=== PATIENT | female | born 1975 | race Caucasian/White ===

== ENCOUNTER 2017-01-18 14:18 | Emergency (ER) | payer OTHER ==
--- NOTE | ~2017-01-18 | CR72 ---
[facility] A Service of [facility] & [facility] RADIOLOGY TEXT RESULTS PATIENT: RUI FAIR LOCATION: [facility] : [birth year] UNIT #: [id number] AGE: [address]: Danette Espinoza MD SEX: F ORDER DR: [id number] [facility] [address] [place], [place] [address] [id number] E MR#: [id number] Acc #: [id number] NAME: RUI FAIR : 1975 SEX: F STUDY DATE/TIME: 01/18/2017 13:50 UNIT: [facility] ROOM: STUDY DESCRIPTION: CR Chest Single View Portable Attending Physician: Danette Espinoza M.D. Ordering Physician: Ed Jose L Alarcon M.D. Primary Care Physician: Dillon Jensen M.D. MEDICAL IMAGING REPORT This report is preliminary unless electronic signature is present EXAM Chest portable, 01/18/2017 1350 hours CLINICAL HISTORY 41-year-old complaining of pressure in chest anteriorly for 2 days, shortness of air today. COMPARISON 05/08/2016 FINDINGS Portable upright chest demonstrates normal cardiac, mediastinal and hilar contours. There is mild elevation of the right hemidiaphragm, unchanged. The lungs are clear and there are no effusions. IMPRESSION No acute cardiopulmonary findings. No change from 05/08/2016. There is mild elevation of the right hemidiaphragm which is unchanged. Dictated by... Veronica Cooley M.D. THIS IS AN ELECTRONICALLY VERIFIED REPORT Veronica Cooley M.D. at 01/19/2017 9:38 AM TOM/mikey TD: 01/18/2017 22:12 JOB #: [id number] MEDICAL IMAGING REPORT Page 1 of 1 COPY
--- NOTE | ~2017-01-18 | EKG ---
PATIENT: RUI FAIR UNIT #: [id number] Ventricular Rate: 88 BPM Atrial Rate: 88 BPM P-R Interval: 148 ms QRS Duration: 86 ms Q-T Interval: 348 ms QTC Calculation(Bezet): 421 ms P [place]: 34 degrees Calculated R [place]: 18 degrees Calculated T [place]: 15 degrees Diagnosis Line: Normal sinus rhythm Diagnosis Line: Normal ECG Diagnosis Line: When compared with ECG of 08-MAY-2016 07:07, Diagnosis Line: No significant change was found Diagnosis Line: Confirmed by ROLY MAR MD ([id number]) on 01/20/2017 Diagnosis Line: 9:12:12 AM INTERPRETING MD: ISABLEA MCKEON
[2017-01-18 14:04] LABS: BASOPHIL% 0.2 % (0-2.5); EOSINOPHIL# 0.3 X10e3 (0-0.7); HEMATOCRIT 40.4 % (35.0-45.0); HEMOGLOBIN 13.9 gm/dL (12.0-16.0); LYMPHOCYTE# 1.5 X10e3 (1.0-3.5); LYMPHOCYTE% 24.7 % (17.0-45.0); MEAN CELL VOLUME 88.3 FL (83-96); MEAN CORPUSCULAR HEMOGLOBIN 30.3 PG (28-34); MEAN CORPUSCULAR HGB CONC 34.4 g/dL (30-36); MEAN PLATELET VOLUME 8.1 FL (6.5-11.5); MONOCYTE# 0.4 X10e3 (0-1.0); MONOCYTE% 7.6 % (3.0-12.0); NEUTROPHIL# 3.7 X10e3 (1.5-7.1); NEUTROPHIL% 62.5 % (40-75); PLATELET COUNT 245 X10e3 (140-420); RED BLOOD COUNT 4.57 X10e (3.90-5.30); RED CELL DISTRIBUTION WIDTH 13.1 % (11.0-15.5); WHITE BLOOD COUNT 5.9 X10e3 (4.0-10.5)
[2017-01-18 14:08] LABS: POC - CKMB <1.0 ng/mL (0.0-7.9); POC - TROPONIN <0.05 ng/mL (<=0.05)
[2017-01-18 14:09] LABS: DIFF IND NO
[2017-01-18 14:13] LABS: INR 0.9; PARTIAL THROMBOPLASTIN TIME 24.6 SECONDS (23.5-31.3); PROTHROMBIN TIME (PATIENT) 9.5 SECONDS (9.6-11.5)
[2017-01-18 14:17] LABS: ALBUMIN SERUM 3.8 g/dL (3.5-5.0); ALKALINE PHOSPHATASE 87 U/L (32-92); ALT (SGPT) 24 U/L (10-40); AST (SGOT) 21 U/L (10-42); BILIRUBIN, DIRECT 0.1 mg/dL (0.0-0.2); BILIRUBIN,INDIRECT 0.5 mg/dL (0.0-0.9); BILIRUBIN,TOTAL 0.6 mg/dL (0.2-2.0); BLOOD UREA NITROGEN 12 mg/dL (9-23); BUN/CREATININE RATIO 17.14; CALCIUM SERUM 9.7 mg/dL (8.4-10.2); CARBON DIOXIDE 25 mmol/L (22-31); CHLORIDE 106 mmol/L (100-111); CREATININE SERUM 0.7 mg/dL (0.6-1.4); GLOM FILT RATE Estimated ABOVE60 mL/min (>60); GLUCOSE FASTING 106 mg/dL (70-110); POTASSIUM 3.8 mmol/L (3.5-5.1); PROTEIN TOTAL SERUM 7.3 g/dL (6.0-8.3); SODIUM 139 mmol/L (135-145)
[~2017-01-18 14:18] MED LIST: ALBUTEROL17 G1 IH; ALBUTEROL17 GM INH; AMOXIL500 MG PO; ANEXSIA 7.5/3251 TA1 PO; FLEXERIL10 M1 PO; HYDROCODONE-APA1 T57 PO; IBUPROFEN800 MG PO; LORTAB 5/500 TA1 TA2 PO; PREDNISONE50 MG PO; PRENATAL1 TA1 PO; SYNTHROID0.1 MG PO; VICODIN PO; ZITHROMAX PO
[2017-01-18 15:35] LABS: POC - CKMB <1.0 ng/mL (0.0-7.9); POC - TROPONIN <0.05 ng/mL (<=0.05)
[2017-01-18 17:11] LABS: INFLUENZA A NEG (NEG); INFLUENZA B NEG (NEG)
== END 2017-01-18 17:25 | disposition home or self-care (01) ==
LOC: CED 14:18
PROVIDERS: Emergency Medicine
DX: R07.89 Other chest pain (principal); E03.9 Hypothyroidism, unspecified; J45.909 Unspecified asthma, uncomplicated; Z90.49 Acquired absence of other specified parts of digestive tract; Z98.890 Other specified postprocedural states
CPT/HCPCS: 36415; 71010; 80048; 80076; 82553; 84484; 84703; 85025; 85610; 85730; 87804; 93005; 99284

== ENCOUNTER 2017-06-02 15:12 | Emergency (ER) | payer OTHER ==
[~2017-06-02] VITALS: Ht 149.9 cm; Wt 97.5 kg
[2017-06-02 18:45] LABS: URINE SOURCE CLEAN CATCH
[2017-06-02 18:49] LABS: URINE APPEARANCE CLEAR; URINE BILIRUBIN NEG (NEG); URINE BLOOD NEG (NEG); URINE COLOR YELLOW; URINE GLUCOSE NEG (NEG); URINE KETONE NEG (NEG); URINE LEUKOCYTE ESTERASE NEG (NEG); URINE NITRATE NEG (NEG); URINE PH 5.5 (5-8); URINE PROTEIN NEG (NEG); URINE SPECIFIC GRAVITY 1.019 (1.003-1.035); URINE UROBILINOGEN 0.2 MG/DL (NEG)
[2017-06-02 18:58] LABS: CULTURE INDICATED? NO
== END 2017-06-02 19:45 | disposition home or self-care (01) ==
LOC: CED 15:12
PROVIDERS: Emergency Medicine
DX: R51 Headache (principal); H53.9 Unspecified visual disturbance; J45.909 Unspecified asthma, uncomplicated; Z90.49 Acquired absence of other specified parts of digestive tract; Z88.2 Allergy status to sulfonamides
CPT/HCPCS: 81003; 84703; 99284

== ENCOUNTER → 2017-06-14 | Outpatient (CLI) | payer OTHER ==
--- NOTE | ~2017-06-14 | MR189 ---
[facility] A Service of [facility] & [facility] RADIOLOGY TEXT RESULTS PATIENT: RUI FAIR LOCATION: [facility] : 79 UNIT #: [id number] AGE: [address]: Salbador Varghese MD SEX: F ORDER DR: [id number] [facility] [address] [place], [place] [address] [id number] O MR#: [id number] Acc #: [id number] NAME: RUI FAIR : 1975 SEX: F STUDY DATE/TIME: 06/14/2017 8:19 UNIT: [facility] ROOM: STUDY DESCRIPTION: MRV Head Wo Contrast Attending Physician: Salbador Varghese M.D. Referring Physician: Salbador Varghese M.D. Ordering Physician: Salbador Varghese M.D. Primary Care Physician: Dillon Jensen M.D. MRI CENTER REPORT This report is preliminary unless electronic signature is present. EXAM MR venogram of the head without contrast dated 06/14/17. COMPARISON MRI of brain with and without contrast dated 06/14/17. HISTORY Headaches for a few years, increasing in the last 2 months. Blurry vision in the left eye 2 weeks ago. It lasted for 20 minutes. It resolved now. FINDINGS Multi-Source and 3D reconstruction MIP images of the MR venogram of the brain was performed as per the protocol. Superior sagittal sinus, bilateral transverse sinuses, bilateral sigmoid sinuses and the internal jugular veins do not demonstrate any significant abnormality. No filling defects are noted to suggest acute thrombus. IMPRESSION Within normal limits. Dictated by... Edouard Jimenes M.D. THIS IS AN ELECTRONICALLY VERIFIED REPORT Edouard Jimenes M.D. at 06/16/2017 5:22 PM CPR/pc TD: 06/14/2017 13:40 JOB #: [id number] MRI CENTER REPORT Page 1 of 1 COPY
--- NOTE | ~2017-06-14 | MR17 ---
[facility] A Service of [facility] RADIOLOGY TEXT RESULTS PATIENT: RUI FAIR [facility] : 79 UNIT #: [id number] AGE: [address]: Salbador Varghese MD SEX: F ORDER DR: [id number] [facility] [address] [place], [place] [address] [id number] O MR#: [id number] Acc #: [id number] NAME: RUI FAIR : 1975 SEX: F STUDY DATE/TIME: 06/14/2017 8:33 UNIT: [facility] ROOM: STUDY DESCRIPTION: MR Brain WWo Contrast Attending Physician: Salbador Varghese M.D. Referring Physician: Salbador Varghese M.D. Ordering Physician: Salbador Varghese M.D. Primary Care Physician: Dillon Jensen M.D. MRI CENTER REPORT This report is preliminary unless electronic signature is present. EXAM MRI of the brain with and without contrast dated 06/14/17. COMPARISON MRV of the head dated 06/14/17, CT head without contrast dated 10/03/11. HISTORY Headache for a few years. It is increasing in the last 2 months. Blurry vision in the left eye 2 weeks ago. It lasted for 20 minutes. Resolved now. FINDINGS Multisequence, multiplanar imaging of the brain was obtained with and without contrast. 20 mL of MultiHance was administered intravenously. Age appropriate parenchymal volume was seen. Tavarez-white junction is irregularly preserved. Basal ganglia, brainstem and cerebellar hemispheres are grossly unremarkable. Thick slices through the sella with the pituitary gland, pineal region and upper cervical spine are grossly unremarkable. Postcontrast sequences do not demonstrate enhancing lesions. Posterior nasal septal deviation to the right and mild bilateral mastoid mucosal thickening, particularly in the right. IMPRESSION 1. No demonstrable significant intracranial abnormality. Dictated by... Edouard Jimenes M.D. THIS IS AN ELECTRONICALLY VERIFIED REPORT [facility] A Service [facility] RADIOLOGY TEXT RESULTS PATIENT: RUI FAIR [facility] : 79 UNIT #: [id number] AGE: [address]: Salbador Varghese MD SEX: F ORDER DR: Edouard Jimenes M.D. at 06/16/2017 5:23 PM CPR/pc TD: 06/14/2017 13:45 JOB #: [id number] MRI CENTER REPORT Page 1 of 1 COPY
== END | disposition home or self-care (01) ==
LOC: CMRI 07:37
DX: R51 Headache (principal); R63.5 Abnormal weight gain
CPT/HCPCS: 70544; 70553; A9577